=== PATIENT | female | born 1970 | race Caucasian/White ===

== ENCOUNTER 2018-12-24 20:02 | Emergency (ER) | payer BC ==
[~2018-12-24] VITALS: Ht 165.1 cm; Wt 83.9 kg
[2018-12-24] MEDS ORDERED: AMBIEN 5 MG TABL5 M1 PO (20:19)
[2018-12-24] MEDS ORDERED: LAMICTAL XR100 MG PO (20:19)
[2018-12-24] MEDS ORDERED: CLONAZEPAM 1 MG1 M1 PO (20:20)
[2018-12-24] MEDS ORDERED: VRAYLAR1.5 MG PO (20:21)
[2018-12-24 20:35] VITALS: BP 134/95
== END 2018-12-24 20:38 | disposition home or self-care (01) ==
LOC: M.ERS 20:02
DX: R53.1 Weakness (principal); F41.9 Anxiety disorder, unspecified; F31.9 Bipolar disorder, unspecified; Z88.8 Allergy status to other drugs, medicaments and biological substances